=== PATIENT | female | born 1955 | race Caucasian/White ===

== ENCOUNTER → 2016-11-12 | Outpatient (CLI) | payer MEDICARE, MEDICAID ==
[~2016-11-12] MED LIST: AMOXICILLIN 50500 MG PO; AMOXICOT500 M1 PO; ASPIRIN 81MG TA81 MG PO; ATENOLOL25 MG PO; CIPRO 500MG TA500 MG PO; CLARITHROMYCIN500 MG PO; CRESTOR10 MG PO; DARVOCET-N 1001 EACH PO; FAMOTIDINE 20MG20 MG PO; HYDROCODONE1 TABLET PO; LANSOPRAZOLE30 MG PO; LEVOFLOXACIN 5500 M1 PO; LORATADINE 10MG10 M1 PO; MEDROL 4MG. DOSE4 MG PO; OMEPRAZOLE20 MG PO; PHENERGAN 25MG.25 M1 PO; PREDNISONE 20MG20 MG PO; TESSALON PERLE100 MG PO; ZITHROMAX 250M250 MG PO; ZITHROMAX Z-PA250 M1 PO
== END ==
LOC: LAB 19:27
DX: N39.0 Urinary tract infection, site not specified (principal); T14.8 Other injury of unspecified body region

== ENCOUNTER → 2016-11-30 | Outpatient (CLI) | payer MEDICARE, MEDICAID ==
--- NOTE | 2016-11-30 20:08 | RADIOLOGY REPORT PS360 ---
PROCEDURE: 2-D M-mode and color Doppler study INDICATIONS FOR THE TEST: Chest painX COPD Heart Murmur Tobacco SmokingX Palpitations Fatigue Syncope Edema HypertensionXDiabetes Mellitus Rheumatic Fever SOB TAY Obesity HyperlipidemiaX Family History HD Additional History CAD STENT PATIENT INFORMATION HEIGHT: 63 WEIGHT:177 GENDER: Female B/P:110/70 2-D/M-MODE INTERPRETATION: 2-D MEASUREMENTS OBSERVED VALUES IN CMS Right Ventricular Dimension (RVDd) 1.6 Interventricular Septum (Thickness)(IVsd) 1.1 Left Ventricular Internal Dimensions(LVIDd) 5.4 Left Ventricular Posterior Wall (Thickness)(LVPWd) 1.1 Aortic Root 3.6 Aortic Cusp Separation 1.7 Left Atrial Dimensions (LAD) 3.0 2D 1. Left atrium is mildly enlarged, left ventricle is normal size, there is mild concentric left ventricular hypertrophy, visually estimated ejection fraction 55% with no obvious regional wall motion abnormality. 2. The right atrium and right ventricle are normal size and contractility. 3. The aortic valve is minimally thickened and calcified, the aortic root and ascending aorta is not well visualized. 4. The mitral and tricuspid valve leaflets are minimally thickened. 5. The pulmonic valve is poorly visualized. 6. No significant pericardial effusion noted. DOPPLER INTERROGATION: Doppler interrogation of the aortic, mitral and tricuspid valvular presence of trace aortic, mild mitral and tricuspid regurgitation, tricuspid and jet velocity insufficient for calculation of the right ventricular systolic pressure, diastolic parameters are within normal range. CONCLUSION: 1. Mildly enlarged left atrium, normal left ventricular size, mild concentric left ventricular hypertrophy, visually estimated ejection fraction 55% with no obvious regional wall motion abnormality, diastolic parameters are within normal range. 2. Trace aortic, mild mitral and tricuspid regurgitation. 3. No significant pericardial effusion noted.
== END ==
LOC: RAD 07:30
DX: I25.10 Atherosclerotic heart disease of native coronary artery without angina pectoris (principal); I65.23 Occlusion and stenosis of bilateral carotid arteries; I10 Essential (primary) hypertension; E78.5 Hyperlipidemia, unspecified

== ENCOUNTER 2017-01-05 07:37 | Day surgery (SDC) | payer MEDICARE, MEDICAID ==
[2017-01-05 08:28] LABS: HEMOGLOBIN 13.8 g/dL (12.2-16.2); LYMPH # 2.9 K/mm3 (0.7-4.5); LYMPH % 24.4 % (10-50.0)
[2017-01-05 08:37] LABS: BUN 7 mg/dL (7-18); GFR (ESTIMATED) 85 ML/MIN (59-)
--- NOTE | 2017-01-05 10:41 | RADIOLOGY REPORT PS360 ---
CARDIAC CATHETERIZATION DATE OF CATHETERIZATION:01/05/2017 10:05 AM PROCEDURES: 1. Left heart catheterization 2. Left ventriculogram 3. Selective coronary angiogram 4. FFR to the circumflex artery INDICATION FOR TEST: 1. Coronary artery disease 2. Preoperative evaluation prior to carotid endarterectomy 3. Angiographically indeterminate disease Informed consent was obtained prior to the procedure. COMPLICATIONS: None ESTIMATED BLOOD LOSS: Less than 10 ml. TECHNIQUE: One percent lidocaine used to anesthetize the right anterior aspect of the wrist. The right radial artery was accessed via the Seldinger technique. A 6 [place] sheath was placed in the right radial artery. 2.5 mg of verapamil, 800 mcg of nitroglycerin and 5000 U Heparin were given through the arterial sheath. The trap catheter was also used to perform left heart catheterization left ventriculogram and selective coronary angiogram. At the end of the diagnostic procedure an additional 3000 units of heparin was administered intravenously. An [employer] left guide catheter was placed in the ascending aorta and an FFR wire was normalized. The guide catheter was used intubate the left main artery and the FFR wire was placed down into the circumflex artery. Adenosine was infused per protocol and the FFR index dropped to 0.84. At the end the procedure the sheath was removed good hemostasis was achieved using TR banding patient was transferred to the postop holding area in stable condition. The ACT measured ANGIOGRAPHIC RESULTS: 1. The left main artery normal 2. The left anterior descending artery is proximally normal and then has smooth 30% mid vessel stenoses 3. The circumflex artery is nondominant yet still a large vessel and has a mid vessel 50% stenosis produces an FFR index of 0.84 4. The right coronary artery is dominant and has a stent in the ostial proximal segment which is widely patent free of in-stent restenosis. The remaining vessel has 30% proximal and mid vessel stenoses 5. The DOWNEY ventriculogram reveals normal 65% 6. The left ventricular end-diastolic pressure 20 mmHg IMPRESSION: 1. Patent stent in the proximal dominant right coronary artery 2. Angiographically indeterminate stenosis in the circumflex artery which produces an FFR index of 0.84 3. Normal ejection fraction 4. Mildly elevated LVEDP PLAN: 1. A should is a low and acceptable risk to proceed with elective carotid endarterectomy 2. LDL less than 55 3. Risk factor modification 4. Avoidance of tobacco products
[2017-01-05 13:59] VITALS: BP 108/62
== END 2017-01-05 13:52 | disposition home or self-care (01) ==
LOC: CATHLAB 07:37
PROVIDERS: Internal Medicine
PROC: B2111ZZ Fluoroscopy of Multiple Coronary Arteries using Low Osmolar Contrast (ICD-10-PCS; 2017-01-05)
PROC: B2151ZZ Fluoroscopy of Left Heart using Low Osmolar Contrast (ICD-10-PCS; 2017-01-05)
PROC: 4A033BC Measurement of Arterial Pressure, Coronary, Percutaneous Approach (ICD-10-PCS; 2017-01-05)
PROC: 4A023N7 Measurement of Cardiac Sampling and Pressure, Left Heart, Percutaneous Approach (ICD-10-PCS; principal; 2017-01-05 08:30)
DX: I25.118 Atherosclerotic heart disease of native coronary artery with other forms of angina pectoris (principal); Z72.0 Tobacco use; I11.9 Hypertensive heart disease without heart failure; R09.89 Other specified symptoms and signs involving the circulatory and respiratory systems
CPT/HCPCS: C1725; C1769; J0153; J1644; Q9967